=== PATIENT | male | born 1965 | race Caucasian/White ===

== ENCOUNTER 2019-04-13 13:41 | Outpatient (CLI) | payer BC ==
--- NOTE | 2019-04-13 14:31 | ULT ---
RENAL ULTRASOUND: Chronic kidney disease. COMPARISON: None. TECHNIQUE: Multiplanar bonner-scale and color Doppler images were obtained in a renal ultrasound. FINDINGS: The kidneys are normal in echogenicity without hydronephrosis or calculi and measures 9.5 and 9.4 cm in length on the right and left, respectively. Limited visualization of the urinary bladder is unrem arkable. IMPRESSION: Unremarkable renal ultrasound. POS: ANDREINA
== END 2019-04-13 13:42 | disposition home or self-care (01) ==
LOC: BICULT 13:41
PROVIDERS: ATTEND Internal Medicine Nephrology
DX: I12.9 Hypertensive chronic kidney disease with stage 1 through stage 4 chronic kidney disease, or unspecified chronic kidney disease (principal); N18.3 Chronic kidney disease, stage 3 (moderate)
CPT/HCPCS: 76770

== ENCOUNTER 2019-04-18 10:27 | Outpatient (CLI) | payer BC ==
--- NOTE | 2019-04-18 11:54 | MRI ---
EXAM: MRI lumbar spine without contrast HISTORY: Low back pain with left leg radiculopathy COMPARISON: 10/28/2003 TECHNIQUE: Multiple planar multisequence MR images were obtained of the lumbar spine without contrast . FINDINGS: The vertebral bodies and intervertebral discs demonstrate normal height and alignment without fractur e or subluxation. Foci of high T2 signal in the bilateral kidneys likely represent small cysts. The other prevertebral and paraspinal soft tissues are unremarkable. Endplate degenerative changes are seen surrounding L5/S1. The conus medullaris terminates normally at T12/L1. T12/L1: No significant posterior bulge or protrusion. No posterior facet arthrosis. No central robbie l stenosis. No neural foraminal stenosis L1/2: No significant posterior bulge or protrusion. No posterior facet arthrosis. No central canal stenosis. No neural foraminal stenosis L2/3: No significant posterior bulge or protrusion. No posterior facet arthrosis. No central canal stenosis. No neural foraminal stenosis L3/4: A minimal generalized concentric disc bulge is seen. No posterior facet arthrosis. Mild centr al canal stenosis. Mild to moderate bilateral neural foraminal stenosis L4/5: A moderate generalized concentric disc bulge is seen. There is an extruded fragment extending f rom this disc posterior to the L5 vertebral body. This fragment measures 1.6 cm in greatest dimension. This fragment appears to impress upon the right L5 nerve root. Mild bilateral posterior f acet arthrosis. Moderate central canal stenosis. Moderate bilateral neural foraminal stenosis, right greater than left. L5/S1: Moderate central protrusion associated with high T2 signal which may represent an annular tear . No posterior facet arthrosis. No central canal stenosis. Moderate to severe bilateral neural foraminal stenosis IMPRESSION: Degenerative changes of the lumbar spine as above. These [facility]
== END 2019-04-18 10:28 | disposition home or self-care (01) ==
LOC: TBSIIMAG 10:27
PROVIDERS: ATTEND Neurological Surgery
DX: M47.26 Other spondylosis with radiculopathy, lumbar region (principal)
CPT/HCPCS: 72148

== ENCOUNTER 2019-05-23 08:05 | Outpatient (CLI) | payer BC | END 2019-05-23 08:06 | disposition home or self-care (01) | LOC: LABBT 08:05 | PROVIDERS: ATTEND Neurological Surgery | DX: Z01.810 Encounter for preprocedural cardiovascular examination (principal); M54.16 Radiculopathy, lumbar region | CPT/HCPCS: 93005; 93010 ==

== ENCOUNTER 2019-06-22 12:41 | Outpatient (CLI) | payer BC ==
[2019-06-22] MEDS ORDERED: ISOVUE-370 76%-LOCM 1 ML ONE (12:47)
--- NOTE | 2019-06-22 13:41 | CT ---
CT neck with contrast: DATE: 06/22/2019 HISTORY: 54-year-old male with lymphadenopathy. Right-sided neck mass. COMPARISON: None FINDINGS: There is an approximately 2.5 x 1.5 x 1.5 cm region of mild rim enhancement and mild thickening of th e right palatine tonsil, which slightly encroaches upon the right oropharyngeal airway, effacing the right glossopharyngeal sulcus. There is a 3 x 2 x 3.5 cm enlarged right level 2A jugulodigastric necrotic lymph node with heterogene ous enhancement and multiple small areas of low attenuation. Posterior and inferior to that, there is a chain of much smaller abnormally strongly enhancing additional right level 2 lymph nodes. For ex ample, the uppermost one abuts the posterior surface of the large necrotic lymph node described above, and measures approximately 1.3 x 1.2 x 0.5 cm. These are also highly suspicious for malignant prostatic lymphadenopathy. ACDF hardware at C5-6. Nonspecific mild asymmetry of the larynx without convincing evidence of neopla sm. No thyromegaly. No significant left-sided cervical lymphadenopathy. No pathology identified involving parotid, submandibular, parapharyngeal, retropharyngeal, perivertebral, or golf sales manager, or p osterior cervical, spaces, other than the right lymphadenopathy. 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 2) this is at least T2, N2b, M0, stage KEYLA
== END 2019-06-22 12:42 | disposition home or self-care (01) ==
LOC: BICCT 12:41
PROVIDERS: ATTEND Family Medicine
DX: R59.0 Localized enlarged lymph nodes (principal); C09.9 Malignant neoplasm of tonsil, unspecified
CPT/HCPCS: 70491

== ENCOUNTER 2019-07-12 11:58 | Outpatient (CLI) | payer BC ==
--- NOTE | 2019-07-12 15:51 | PET ---
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 Exam requested to evaluate for distant metastasis, initial staging. TECHNIQUE: PET scan with CT attenuation correction was performed from the vertex through the proximal thighs fol lowing the intravenous administration of 12 millicuries of [id number] in the right antecu bital fossa. COMPARISON: None. CORRELATION: CT neck dated 06/22/19. FINDINGS: There is intense FDG localization in the right palatine tonsil with an SUV of 15.3. Increased FCG loc alization is see in the right level II lymph nodes with an SUV of 9.2. No other hypermetabolic lymph nodes are seen in the neck, chest, axillae, abdomen or pelvis. No hypermetabolic pulmonary nodules, liver, adrenal, or skeletal lesions are seen. There is increased uptake in the soft tissues of the lower back consistent with recent surgery. The CT scan used for attenuation correction demonstrates no evidence of pleural effusions or ascites. There is colonic diverticulosis. IMPRESSION: 1. Right tonsillar malignancy with right level II cervical lymph pauline metastases. 2. No evidence of distant metastases. POS: ANDREINA
== END 2019-07-12 11:59 | disposition home or self-care (01) ==
LOC: PET 11:58
PROVIDERS: ATTEND Internal Medicine Hematology & Oncology
DX: C09.0 Malignant neoplasm of tonsillar fossa (principal); C77.0 Secondary and unspecified malignant neoplasm of lymph nodes of head, face and neck
CPT/HCPCS: 78815; A9552

== ENCOUNTER 2019-07-17 13:09 | Day surgery (SDC) | payer BC ==
[2019-07-16 11:37] VITALS: BMI 27.2
[2019-07-17] MEDS ORDERED: Ketorolac Tromethamine 30 MG/ML VIAL ONE (13:26)
[2019-07-17] MEDS ORDERED: Scopolamine 1.5 mg/72 hour Patch ONE (13:31)
[2019-07-17] MEDS ORDERED: Midazolam HCl 2 mg/2 ml Vial ONE (13:44)
[2019-07-17] MEDS ORDERED: Bupivacaine/Epinephrine 0.25% 30 ML VIAL ONE (13:56)
[2019-07-17] MEDS ORDERED: Lidocaine 1% (PF) 30 ML VIAL ONE (13:56)
[2019-07-17] MEDS ORDERED: Fentanyl 100 MCG/2 ML VIAL ONE (13:57)
[2019-07-17 14:16] LABS: #Basophils 0.1 thou/uL (0.0-0.2); #Eosinphils 0.2 thou/uL (0.0-0.7); #Lymphocytes 2.1 thou/uL (1.20-3.40); #Monocytes 0.5 thou/uL (0.11-0.59); %Basophils 1.1 % (0.0-1.0); %Eosinophils 3.4 % (0.0-10.0); %Lymphocytes 35.6 % (21.0-51.0); %Monocytes 8.9 % (0.0-10.0); Hemoglobin 12.8 g/dL (14.0-18.0); Mean Corpuscular HGB CONC 33.7 g/dL (32.0-36.0); Mean Corpuscular Hemoglobin 30.5 pg (27.0-31.0); Mean Corpuscular Volume 90.7 fL (78.0-98.0); Mean Platelet Volume 8.1 fL (7.4-10.4); Platelet Count 218 thou/uL (130-400); RBC Distribution Width 12.4 % (11.5-14.5); White Blood Cell (WBC) Count 5.8 thou/uL (4.8-10.8)
[2019-07-17 14:36] LABS: Anion Gap 11 mmol/L (10-20); BUN (Urea Nitrogen) 22 mg/dL (8.4-25.7); Calc. Creatinine Clearance 76 mL/min (70-130); Calcium 9.8 mg/dL (7.8-10.44); Carbon Dioxide 23 mmol/L (22-29); Chloride 104 mmol/L (98-107); Estimated GFR-MDRD 55; Glucose 83 mg/dL (70-105); Potassium 4.3 mmol/L (3.5-5.1); Sodium 134 mmol/L (136-145)
--- NOTE | 2019-07-17 15:13 | RAD ---
EXAM: Single view of the chest HISTORY: Mediport placement COMPARISON: None FINDINGS: Single view of the chest shows a normal sized cardiomediastinal silhouette. A right subcla vian Mediport is seen with its tip in the superior vena cava. No pneumothorax is seen. There is no evidence of consolidation, mass, or pleural effusion. The bones are unremarkable. IMPRESSION: Status post Mediport placement without evidence of complication.
[2019-07-17] MEDS ORDERED: PROPOFOL 200 MG/20 ML VIAL ONE (21:27)
--- NOTE | 2019-07-18 09:59 | OP ---
DATE OF PROCEDURE: 07/17/2019 PREOPERATIVE DIAGNOSIS: Tonsillar cancer. POSTOPERATIVE DIAGNOSIS: Tonsillar cancer. PROCEDURE PERFORMED: Placement of right subclavian standard-sized power compatible MediPort. ANESTHESIA: Total intravenous anesthesia with local using 0.25% Marcaine with epinephrine. INDICATIONS: The patient is a 54-year-old white male. He was recently diagnosed with cancer of the tonsil. MediPort is requested for chemotherapy administration. DESCRIPTION OF OPERATION: Informed consent was obtained. The patient was taken to the operating room where total intravenous anesthesia was obtained with the patient in supine position. Right periclavicular area was prepped with ChloraPrep and draped in sterile fashion. Local anesthetic was infiltrated and a large-gauge needle was passed under the clavicle in the subclavian vein. Guidewire was passed through the needle and fluoroscopically confirmed to enter the superior vena cava. Additional local anesthetic was infiltrated and transverse incision was created based on needle insertion site. A subcutaneous pocket was dissected inferiorly. Introducer dilator was passed over the guidewire under fluoroscopic guidance. The guidewire and dilator were removed, and the catheter was passed through the introducer. The tip of the catheter was positioned at the atriocaval junction and the catheter was trimmed to the appropriate length and secured to the locking hub of the MediPort. The port was then placed in the subcutaneous pocket where it was secured to the pectoral fascia with 2 interrupted sutures of 3-0 Prolene. The incision was then closed in layers with 3-0 and 4-0 Monocryl. Additional local anesthetic was infiltrated. The port was cannulated with a Morales needle and it aspirated blood freely and was flushed with heparinized saline. Dermabond was placed externally on the skin incision. There were no complications. Blood loss was negligible. The patient tolerated the procedure well and was taken to recovery room in stable condition. FINDINGS: Port placement was uneventful. Anatomy was typical and fluoroscopy was used throughout. Standard size port was selected and placed uneventfully with essentially no blood loss. The patient tolerated the procedure well and postprocedure chest x-ray documents good position of the port and catheter. Job ID: [id number]
== END 2019-07-17 16:02 | disposition home or self-care (01) ==
LOC: SDC 13:09
PROVIDERS: ATTEND Specialist
PROC: 05H533Z Insertion of Infusion Device into Right Subclavian Vein, Percutaneous Approach (ICD-10-PCS; principal; 2019-07-17)
DX: C09.9 Malignant neoplasm of tonsil, unspecified (principal); I12.9 Hypertensive chronic kidney disease with stage 1 through stage 4 chronic kidney disease, or unspecified chronic kidney disease; N18.3 Chronic kidney disease, stage 3 (moderate); E78.00 Pure hypercholesterolemia, unspecified; M19.90 Unspecified osteoarthritis, unspecified site
CPT/HCPCS: 36415; 71045; 80048; 85025; C1788; J0131; J0690; J1642; J1885; J2001; J2250; J2704; J3010

== ENCOUNTER 2019-08-15 10:41 | Outpatient (CLI) | payer BC ==
--- NOTE | 2019-08-17 14:57 | RAD ---
MODIFIED BARIUM SWALLOW: Date: 08/15/19 HISTORY: Dysphagia, unspecified. Feeding difficulties. Right tonsillar cancer. This exam was performed by speech pathology and varying consistencies of barium were administered dur ing the exam. FINDINGS: A few episodes of premature spill of contrast in the vallecula were noted prior to initiation of the swallowing mechanism. An episode of penetration of thin liquid barium was noted during the exam. No f rank aspiration seen. IMPRESSION: Episode of mild penetration without get aspiration visualized. Total fluoroscopy time was 13.9 seconds with total dose of 8.43 milligray. POS: ANDREINA
== END 2019-08-15 10:42 | disposition home or self-care (01) ==
PROVIDERS: ATTEND Radiology Radiation Oncology
DX: C09.0 Malignant neoplasm of tonsillar fossa (principal); R53.1 Weakness; R13.10 Dysphagia, unspecified; R63.3 Feeding difficulties
CPT/HCPCS: 74230

== ENCOUNTER 2019-08-28 09:51 | Day surgery (SDC) | payer BC ==
[2019-08-27 15:50] VITALS: BMI 25.2
[2019-08-28] MEDS ORDERED: Sodium Chloride 0.9% 20 ML ONE (11:01)
[2019-08-28] MEDS ORDERED: Ondansetron PF 4 MG/2 ML Vial ONE (11:49)
[2019-08-28] MEDS ORDERED: Scopolamine 1.5 mg/72 hour Patch ONE (11:49)
[2019-08-28] MEDS ORDERED: Lidocaine 1% PF 5 ML VIAL ONE (12:13)
[2019-08-28] MEDS ORDERED: PROPOFOL 200 MG/20 ML VIAL ONE (12:13)
--- NOTE | 2019-08-29 12:25 | OP ---
DATE OF PROCEDURE: 08/28/2019 PREOPERATIVE DIAGNOSIS: Dysphagia from treatment of tonsillar cancer. POSTOPERATIVE DIAGNOSIS: Dysphagia from treatment of tonsillar cancer. OPERATION PERFORMED: Esophagogastroduodenoscopy with percutaneous endoscopic gastrostomy tube placement. ANESTHESIA: General with total intravenous anesthesia. INDICATIONS: The patient is a 54-year-old white male. I had recently placed a MediPort for chemotherapy administration. He returns at this time with progressive dysphagia and weight loss, requesting PEG tube placement. DESCRIPTION OF OPERATION: Informed consent was obtained. The patient was taken to the operating room where general anesthesia was obtained. The gastroscope was passed down his mouth through the pharynx into the stomach without difficulty. The stomach was easily insufflated. Gastric outflow was inspected and found to be within normal limits. The anterior gastric wall was identified. Light was able to be visualized through the abdominal wall. A site was selected and prepped with ChloraPrep and locally anesthetized with 1% lidocaine. A small stab incision was created through which Angiocath was passed into the gastric lumen. Guidewire was passed through the Angiocath and retrieved with the snare. This was withdrawn through the mouth. The guidewire was affixed to the tapered end of the PEG tube and the complex was pulled through the mouth and the abdominal wall in the standard fashion. The mushroom was pulled snug against the anterior gastric wall. External flange was placed. Antibiotic ointment and a split gauze dressing were placed. The external tube connections were placed in the usual fashion. Dressing was applied. There were no complications. Blood loss was none. The patient tolerated the procedure well and was taken to recovery room in stable condition. Job ID: [id number]
== END 2019-08-28 15:44 | disposition home or self-care (01) ==
LOC: SDC 09:51
PROVIDERS: ATTEND Specialist
PROC: 0DH63UZ Insertion of Feeding Device into Stomach, Percutaneous Approach (ICD-10-PCS; principal; 2019-08-28)
DX: C09.9 Malignant neoplasm of tonsil, unspecified (principal); Z79.899 Other long term (current) drug therapy
CPT/HCPCS: J0690; J1642; J2001; J2405; J2704

== ENCOUNTER 2019-12-18 10:52 | Outpatient (CLI) | payer BC ==
--- NOTE | 2019-12-18 12:54 | CT ---
CT NECK WITH CONTRAST: Axial tomograms were obtained through the neck with IV enhancement. INDICATION: Right tonsillar cancer. Post chemo and radiation. Followup. COMPARISON: Comparison is made to CT neck 06/22/2019. FINDINGS: Parotid glands, submandibular glands, and thyroid appear unremarkable. Nasopharynx unremarkable. Review of the oropharynx showed significant reduction in the palatine tonsils. The enhancing mass in the right palatine tonsil on the prior study is no longer apparent. There is parapharyngeal edema o n the right and there is retropharyngeal edema seen beginning in the oropharynx and extending inferio rly into the upper hypopharynx. This would indicate post radiation change. Residential Insurance Inspector space unremarkable. Carotid space unremarkable with mild atherosclerotic change in bulbs bilaterally. Review of lymph nodes shows no level I adenopathy. The pathologic node seen at level II on the right on the prior study is no longer present. No evidence of level II, III, IV, or V adenopathy. The paranasal sinuses are clear. Mild degenerative change in the cervical spine with postoperative c hanges at the C5-6 level. IMPRESSION: Significant improvement in the neck CT from prior study. The enhancing mass in the right palatine to nsil is no longer apparent. There is right parapharyngeal edema and retropharyngeal edema as describ ed above which would be consistent with post radiation change. No evidence of adenopathy on today's study. POS: ANDREINA
[2019-12-18] MEDS ORDERED: Iopamidol-370 76% 500 ML 1 ML ONE (13:45)
== END 2019-12-18 10:53 | disposition home or self-care (01) ==
LOC: BICCT 10:52
PROVIDERS: ATTEND Radiology Radiation Oncology
DX: C09.0 Malignant neoplasm of tonsillar fossa (principal); R60.0 Localized edema
CPT/HCPCS: 70491; Q9967

== ENCOUNTER 2021-03-04 14:17 | Emergency (ER) | payer BC ==
[~2021-03-04 14:17] MED LIST: Iopamidol-370 76% 500 ML 1 ML ONE
== END 2021-03-04 16:57 | disposition home or self-care (01) ==
LOC: ERS 14:17
DX: R06.02 Shortness of breath (principal); N40.0 Benign prostatic hyperplasia without lower urinary tract symptoms; E78.00 Pure hypercholesterolemia, unspecified; F17.220 Nicotine dependence, chewing tobacco, uncomplicated; Z79.899 Other long term (current) drug therapy
CPT/HCPCS: 36415; 71275; 80053; 83880; 84443; 85025; 85379; 93005; Q9967

== ENCOUNTER 2021-06-05 14:34 | Outpatient (CLI) | payer BC ==
[2021-06-05 15:24] LABS: #Eosinphils 0.2 10x3/uL (0.0-0.5); #Monocytes 0.4 10x3/uL (0.0-1.1); #Neutrophils 3.7 10x3/uL (1.5-8.4); %Basophils 0.6 % (0.0-2.0); %Lymphocytes 16.6 % (18.0-47.0); %Monocytes 8.3 % (0.0-10.0); %Neutrophils 70.1 % (40.0-75.0); Hemoglobin 12.2 g/dL (13.5-17.5); Mean Corpuscular HGB CONC 33.6 g/dL (32.0-36.0); Mean Corpuscular Hemoglobin 31.6 pg (27.0-33.0); Mean Platelet Volume 10.2 fl (7.4-10.4); Platelet Count 176 10x3/uL (150-450); RBC Distribution Width 12.8 % (11.5-14.5); Red Blood Cell (RBC) Count 3.86 10x6/uL (4.32-5.72); White Blood Cell (WBC) Count 5.3 10x3/uL (3.5-10.5)
[2021-06-06 16:42] LABS: SARS-CoV-2 PCR by NAA Not Detected (NotDetected)
== END 2021-06-05 14:35 | disposition home or self-care (01) ==
LOC: LABBT 14:34
PROVIDERS: ATTEND Orthopaedic Surgery Hand Surgery
DX: Z01.812 Encounter for preprocedural laboratory examination (principal); M18.11 Unilateral primary osteoarthritis of first carpometacarpal joint, right hand; Z20.822 Contact with and (suspected) exposure to COVID-19
CPT/HCPCS: 85025; U0003; U0005

== ENCOUNTER 2021-06-09 07:46 | Day surgery (SDC) | payer BC ==
[2021-06-08 12:04] VITALS: BMI 22.9
[2021-06-09] MEDS ORDERED: Fentanyl 100 MCG/2 ML VIAL ONE ×2 (10:14→11:08)
[2021-06-09] MEDS ORDERED: Midazolam HCl 2 mg/2 ml Vial ONE (10:14)
[2021-06-09] MEDS ORDERED: Scopolamine 1.5 mg/72 hour Patch ONE (10:54)
[2021-06-09] MEDS ORDERED: Bacitracin Zinc Ointment 30 gm TUBE ONE (11:13)
[2021-06-09] MEDS ORDERED: Neomycin-Polymyxin 1 ML AMP ONE (11:13)
[2021-06-09] MEDS ORDERED: Bupivacaine PF 0.5% 30 ML VIAL ONE (11:13)
[2021-06-09] MEDS ORDERED: Phenylephrine 10 MG/ML VIAL ONE (11:30)
[2021-06-09] MEDS ORDERED: Dexamethasone 20 MG/5 ML VIAL ONE (11:43)
[2021-06-09] MEDS ORDERED: ePHEDrine 50 MG/ML VIAL ONE (11:43)
[2021-06-09] MEDS ORDERED: PROPOFOL 200 MG/20 ML VIAL ONE (11:43)
[2021-06-09] MEDS ORDERED: Ondansetron PF 4 MG/2 ML Vial ONE (11:43)
[2021-06-09] MEDS ORDERED: Lidocaine 1% PF 5 ML VIAL ONE (11:43)
[2021-06-09] MEDS ORDERED: Bupivacaine HCl 0.5%/Epinephrine 1:200,000/PF 30 ml Vial ONE (11:43)
[2021-06-09] MEDS ORDERED: PHENYLEPHRINE-NS 100 MCG/ML 10 ML SYRINGE ONE (11:43)
[2021-06-09] MEDS ORDERED: Promethazine HCl 25 MG/ML VIAL IM PRN (12:42)
[2021-06-09] MEDS ORDERED: Promethazine HCl 25 MG/ML VIAL IVPB PRN (12:42)
[2021-06-09] MEDS ORDERED: Meperidine HCl/PF 25 MG/ML VIAL SLOW IVP PRN (12:42)
[2021-06-09] MEDS ORDERED: Ondansetron HCl/PF 4 MG/2 ML Vial IVP PRN (12:42)
[2021-06-09] MEDS ORDERED: Ketorolac Tromethamine 30 MG/ML VIAL ONE (15:11)
== END 2021-06-09 17:08 | disposition home or self-care (01) ==
LOC: SDC 07:46
PROVIDERS: ATTEND Orthopaedic Surgery Hand Surgery
PROC: 0LX50ZZ Transfer Right Lower Arm and Wrist Tendon, Open Approach (ICD-10-PCS; principal; 2021-06-09)
PROC: 0RUS07Z Supplement Right Carpometacarpal Joint with Autologous Tissue Substitute, Open Approach (ICD-10-PCS; principal; 2021-06-09)
DX: M18.0 Bilateral primary osteoarthritis of first carpometacarpal joints (principal); F17.290 Nicotine dependence, other tobacco product, uncomplicated; I12.9 Hypertensive chronic kidney disease with stage 1 through stage 4 chronic kidney disease, or unspecified chronic kidney disease; N18.30 Chronic kidney disease, stage 3 unspecified; M19.90 Unspecified osteoarthritis, unspecified site; E78.00 Pure hypercholesterolemia, unspecified; Z79.899 Other long term (current) drug therapy
CPT/HCPCS: 76000; J0690; J1100; J1885; J2250; J2370; J2405; J2704; J3010; J3490; S0020

== ENCOUNTER 2022-04-21 09:21 | Outpatient (CLI) | payer BC | END 2022-04-21 09:22 | disposition home or self-care (01) | LOC: BICRAD 09:21 | PROVIDERS: ATTEND Radiology Radiation Oncology | DX: C09.0 Malignant neoplasm of tonsillar fossa (principal) | CPT/HCPCS: 71046 ==

== ENCOUNTER 2022-08-15 16:00 | Emergency (ER) | payer BC ==
[2022-08-15] MEDS ORDERED: HYDROcodone/Acetaminophen 5/325 mg Tablet ONE (16:30)
[2022-08-15] MEDS ORDERED: Ketorolac Tromethamine 30 MG/ML VIAL ONE (16:31)
[2022-08-15] MEDS ORDERED: Diazepam 10 MG/2 ML SYRINGE ONE (16:31)
[2022-08-15 16:50] LABS: #Lymphocytes 1.2 thou/uL (1.20-3.40); #Monocytes 0.7 thou/uL (0.11-0.59); #Neutrophils 8.5 thou/uL (1.40-6.50); %Basophils 0.1 % (0.0-1.0); %Eosinophils 0.4 % (0.0-10.0); %Lymphocytes 11.2 % (21.0-51.0); %Monocytes 6.9 % (0.0-10.0); %Neutrophils 81.4 % (42.0-75.0); Mean Corpuscular HGB CONC 33.1 g/dL (32.0-36.0); Mean Corpuscular Hemoglobin 31.5 pg (27.0-31.0); Mean Platelet Volume 8.1 fL (7.4-10.4); Platelet Count 169 thou/uL (130-400); RBC Distribution Width 12.4 % (11.5-14.5); Red Blood Cell (RBC) Count 4.76 mill/uL (4.70-6.10); White Blood Cell (WBC) Count 10.4 thou/uL (4.8-10.8)
[2022-08-15 17:10] LABS: ALT (SGPT) 50 U/L (8-55); AST (SGOT) 65 U/L (5-34); Alkaline Phosphatase 56 U/L (40-110); Anion Gap 15 mmol/L (10-20); BUN (Urea Nitrogen) 31 mg/dL (8.4-25.7); Calc. Creatinine Clearance 0 mL/min (70-130); Calcium 10.6 mg/dL (7.8-10.44); Carbon Dioxide 25 mmol/L (22-29); Chloride 101 mmol/L (98-107); Estimated GFR 61; Globulin 2.9 g/dL (2.4-3.5); Glucose 100 mg/dL (70-105); Potassium 4.1 mmol/L (3.5-5.1); Protein, Total 7.9 g/dL (6.0-8.3); Sodium 137 mmol/L (136-145)
== END 2022-08-15 17:43 | disposition home or self-care (01) ==
LOC: ERS 16:00
DX: M62.830 Muscle spasm of back (principal); I10 Essential (primary) hypertension; F17.220 Nicotine dependence, chewing tobacco, uncomplicated
CPT/HCPCS: 72070; 80053; 84484; 85025; 93005; 96374; 96375; J1885; J3360

== ENCOUNTER 2022-08-19 11:32 | Emergency (ER) | payer BC | END 2022-08-19 13:24 | disposition home or self-care (01) | LOC: ERS 11:32 | DX: M62.830 Muscle spasm of back (principal); I10 Essential (primary) hypertension; E78.00 Pure hypercholesterolemia, unspecified; F17.200 Nicotine dependence, unspecified, uncomplicated; F17.220 Nicotine dependence, chewing tobacco, uncomplicated; Z79.899 Other long term (current) drug therapy | CPT/HCPCS: 99283 ==

== ENCOUNTER 2022-09-02 14:34 | Outpatient (CLI) | payer BC | END 2022-09-02 14:35 | disposition home or self-care (01) | LOC: TBSIIMAG 14:34 | PROVIDERS: ATTEND Family Medicine | DX: M51.14 Intervertebral disc disorders with radiculopathy, thoracic region (principal); G89.4 Chronic pain syndrome; M47.24 Other spondylosis with radiculopathy, thoracic region | CPT/HCPCS: 72146 ==

== ENCOUNTER 2024-03-20 13:12 | Outpatient (CLI) | payer BC | END 2024-03-20 13:13 | disposition home or self-care (01) | LOC: BICRAD 13:12 | PROVIDERS: ATTEND Radiology Radiation Oncology | DX: C09.8 Malignant neoplasm of overlapping sites of tonsil (principal) | CPT/HCPCS: 71046 ==